=== PATIENT | female | born 1965 ===

== ENCOUNTER 2020-11-11 08:38 | Observation (INO) ==
[2020-11-11] MEDS ORDERED: CLINDAMYCIN INJ 600 MG/50 ML PREMIX IV ONE (09:16)
[2020-11-11 09:39] LABS: Basophils # 0.1 10*3/uL (0.0-0.2); Basophils % 0.6 % (0.0-0.8); Eosinophils # 0.2 10*3/uL (0.0-0.87); Eosinophils % 1.5 % (0.00-10.9); Hematocrit 41.1 VOL% (35.7-47.0); Hemoglobin 12.4 GM/DL (12.0-16.0); Immature Granulocytes % 0.7 %; Immature Granulocytes Absolute 0.07 #; Lymphocytes # 1.9 10*3/uL (1.4-4.0); Lymphocytes % 18.7 % (21.3-54.2); Mean Corpuscular HGB Conc 30.2 GM/DL (32-36); Mean Corpuscular Volume 87.8 FL (87-102); Mean Platelet Volume 12.5 FL (9.6-12.0); Monocytes % 6.1 % (1.7-12.7); Neutrophils % 72.4 % (38.7-73.9); Platelet Count 177 T/CUMM (130-400); Red Blood Count 4.68 MC/CUMM (3.8-5.5); Red Cell Distribution Width 15.7 % (9.3-17.3); White Blood Count 10.3 T/CUMM (4-12)
[2020-11-11 09:55] LABS: Osmolality,Calculated 286.4 MOS/KG (273-304); Potassium 3.4 MMOL/L (3.5-5.1)
[2020-11-11] MEDS ORDERED: ACETAMINOPHEN 325 MG TABLET PO PRN (10:43)
[2020-11-11] MEDS ORDERED: ONDANSETRON 4 MG/2 ML VIAL IV PRN (10:43)
[2020-11-11] MEDS ORDERED: HYDROmorphone 2 MG/1 ML VIAL IV PRN (10:43)
[2020-11-11] MEDS: SODIUM CHLORIDE 0.9% 1,000 ML IV SCH ×2 (11:25→20:38)
[2020-11-11] MEDS ORDERED: DEXTROSE 50% 25 GM/50 ML VIAL IV PRN (13:15)
[2020-11-11] MEDS ORDERED: GLUCAGON 1 MG VIAL IM PRN (13:15)
[2020-11-11] MEDS: HYDROmorphone 2 MG/1 ML VIAL IV PRN ×2 (13:49→20:38)
[2020-11-11] MEDS ORDERED: INFLUENZA VIRUS VACCINE 0.5 ML SYRINGE IM ONE (14:58)
[2020-11-11] MEDS: INSULIN LISPRO 100 UNIT/ML SUBCUT SCH (16:23)
[2020-11-12] MEDS: SODIUM CHLORIDE 0.9% 1,000 ML IV SCH (03:28)
[2020-11-12] MEDS ORDERED: propofoL 200 MG/20 ML VIAL IV ONE (06:32)
[2020-11-12] MEDS ORDERED: SUCCINYLCHOLINE 200 MG/10 ML VIAL ONE (06:32)
[2020-11-12] MEDS ORDERED: fentaNYL 100 MCG/2 ML VIAL ONE (06:32)
[2020-11-12] MEDS ORDERED: LIDOCAINE 2% 5 ML VIAL ONE (06:32)
[2020-11-12] MEDS ORDERED: MIDAZOLAM 2 MG/2 ML VIAL ONE (06:32)
[2020-11-12] MEDS ORDERED: ALBUTEROL/IPRATROPIUM 3 ML NEB RESP TX STA (06:53)
[2020-11-12] MEDS ORDERED: POTASSIUM CHLORIDE 20 MEQ TABLET PO PRN (06:55)
[2020-11-12] MEDS ORDERED: tiZANidine 4 MG TABLET PO PRN (06:55)
[2020-11-12] MEDS ORDERED: NITROGLYCERIN SL 0.4 MG TABLET SL PRN (06:55)
[2020-11-12] MEDS ORDERED: FUROSEMIDE 40 MG/4 ML VIAL IV ONE (07:03)
[2020-11-12] MEDS ORDERED: LACTATED RINGERS 1,000 ML IV SCH (07:30)
[2020-11-12] MEDS ORDERED: HYDROmorphone 2 MG/1 ML VIAL IV PRN (07:52)
[2020-11-12] MEDS ORDERED: diphenhydrAMINE 50 MG/1 ML VIAL IV PRN (07:52)
[2020-11-12] MEDS ORDERED: PROMETHAZINE INJ 25 MG in SODIUM CHLORIDE 0.9% 50 ML IV PRN (07:52)
[2020-11-12] MEDS ORDERED: MEPERIDINE 25 MG/1 ML VIAL IV PRN (07:52)
[2020-11-12 09:33] LABS: Bilirubin,Total 0.6 MG/DL (0.20-1.00); Calcium 8.4 MG/DL (8.5-10.1); Osmolality,Calculated 282.4 MOS/KG (273-304); Potassium 3.4 MMOL/L (3.5-5.1); Total Protein 6.5 G/DL (6.4-8.2)
[2020-11-12 09:34] LABS: Basophils % 0.6 % (0.0-0.8); Eosinophils # 0.1 10*3/uL (0.0-0.87); Immature Granulocytes % 0.7 %; Immature Granulocytes Absolute 0.05 #; Lymphocytes # 1.6 10*3/uL (1.4-4.0); Mean Corpuscular Volume 88.9 FL (87-102); Mean Platelet Volume 11.8 FL (9.6-12.0); Monocytes % 7.8 % (1.7-12.7); Neutrophils % 65.9 % (38.7-73.9); Platelet Count 146 T/CUMM (130-400); Red Cell Distribution Width 15.9 % (9.3-17.3); White Blood Count 6.9 T/CUMM (4-12)
[2020-11-12] MEDS: POTASSIUM CHLORIDE INJ 10 MEQ in SODIUM CHLORIDE 0.45% 1,000 ML IV SCH (09:59)
[2020-11-12] MEDS: TRIAMTERENE/HCTZ 37.5-25 MG TABLET PO SCH (10:01)
[2020-11-12] MEDS: busPIRone 10 MG TABLET PO SCH ×2 (10:01→22:21)
[2020-11-12] MEDS: ROSUVASTATIN 20 MG TABLET PO SCH (10:01)
[2020-11-12] MEDS: FUROSEMIDE 40 MG/4 ML VIAL IV SCH (10:01)
[2020-11-12] MEDS: ASPIRIN CHEW 81 MG TABLET PO SCH (10:02)
[2020-11-12] MEDS: AZITHROMYCIN INJ 500 MG in SODIUM CHLORIDE 0.9% 250 ML IV SCH (10:04)
[2020-11-12] MEDS: metFORMIN 500 MG TABLET PO SCH ×2 (10:13→22:20)
[2020-11-12] MEDS: INSULIN LISPRO 100 UNIT/ML SUBCUT SCH ×3 (10:13→16:18)
[2020-11-12] MEDS: HYDROmorphone 2 MG/1 ML VIAL IV PRN ×2 (12:21→22:29)
[2020-11-12 12:51] LABS: Bilirubin,Urine Negative (Negative); Blood, Urine Negative (Negative); Calcium Oxalate Crystals,Urine Occasional /HPF (Few); Glucose,Urine (UA) Negative (Negative); Ketones,Urine Negative (Negative); Mucus,Urine Occasional /LPF (Occasional); Nitrite,Urine Negative (Negative); Protein,Urine Negative; RBC,Urine <1 /HPF (0-4); Squamous Epithelial Cell,Urine Occasional /HPF (0-10); Urine Appearance CLEAR (Clear); Urine Color Yellow (Yellow); Urine Specific Gravity 1.024 (1.001-1.035); Urine Urobilinogen < 2.0 EU/DL (0.2-1.0)
[2020-11-12] MEDS: ALBUTEROL/IPRATROPIUM 3 ML NEB RESP TX SCH ×2 (13:53→19:32)
[2020-11-12] MEDS ORDERED: SERTRALINE 25 MG TABLET PO SCH (19:00)
[2020-11-12] MEDS ORDERED: DOXAZOSIN 4 MG TABLET PO SCH (21:00)
[2020-11-13] MEDS: POTASSIUM CHLORIDE INJ 10 MEQ in SODIUM CHLORIDE 0.45% 1,000 ML IV SCH ×2 (00:29→14:52)
[2020-11-13] MEDS: ALBUTEROL/IPRATROPIUM 3 ML NEB RESP TX SCH ×3 (01:44→13:35)
[2020-11-13 05:46] LABS: Calcium 8.6 MG/DL (8.5-10.1)
[2020-11-13 06:07] LABS: Osmolality,Calculated 280.5 MOS/KG (273-304); Potassium 3.3 MMOL/L (3.5-5.1)
[2020-11-13 06:10] LABS: Basophils % 0.6 % (0.0-0.8); Eosinophils # 0.2 10*3/uL (0.0-0.87); Eosinophils % 2.5 % (0.00-10.9); Hematocrit 40.5 VOL% (35.7-47.0); Hemoglobin 12.4 GM/DL (12.0-16.0); Immature Granulocytes Absolute 0.07 #; Lymphocytes # 1.9 10*3/uL (1.4-4.0); Lymphocytes % 26.4 % (21.3-54.2); Mean Corpuscular HGB Conc 30.6 GM/DL (32-36); Mean Corpuscular Volume 89.2 FL (87-102); Mean Platelet Volume 12.6 FL (9.6-12.0); Monocytes % 7.7 % (1.7-12.7); Neutrophils % 61.8 % (38.7-73.9); Platelet Count 148 T/CUMM (130-400); Red Blood Count 4.54 MC/CUMM (3.8-5.5); Red Cell Distribution Width 15.8 % (9.3-17.3); White Blood Count 7.2 T/CUMM (4-12)
[2020-11-13 06:27] LABS: Hypochromasia 1+; Microcytosis 1+; Platelet Estimate Adequate
[2020-11-13] MEDS: FUROSEMIDE 40 MG/4 ML VIAL IV SCH (08:38)
[2020-11-13] MEDS: INSULIN LISPRO 100 UNIT/ML SUBCUT SCH ×3 (08:38→17:07)
[2020-11-13] MEDS: ASPIRIN CHEW 81 MG TABLET PO SCH (08:39)
[2020-11-13] MEDS: busPIRone 10 MG TABLET PO SCH (08:39)
[2020-11-13] MEDS: ROSUVASTATIN 20 MG TABLET PO SCH (08:39)
[2020-11-13] MEDS: metFORMIN 500 MG TABLET PO SCH (08:39)
[2020-11-13] MEDS: TRIAMTERENE/HCTZ 37.5-25 MG TABLET PO SCH (08:39)
[2020-11-13] MEDS: AZITHROMYCIN INJ 500 MG in SODIUM CHLORIDE 0.9% 250 ML IV SCH (08:40)
[2020-11-13] MEDS: HYDROmorphone 2 MG/1 ML VIAL IV PRN (10:17)
[2020-11-13 12:02] VITALS: BP 149/69
== END 2020-11-13 17:43 | disposition home health service (06) ==
LOC: N.EDINP 08:38 → N.ED 08:38 → N.5E 13:57
PROVIDERS: ADMIT Internal Medicine; ATTEND Internal Medicine